=== PATIENT | female | born 1990 | race Caucasian/White ===

== ENCOUNTER 2020-02-05 00:49 | Outpatient (CLI) | payer MEDICARE, MEDICAID, SELFPAY ==
[2020-02-05 17:34] LABS: SARS-CoV-2 RNA PCR Negative
== END 2020-02-05 00:50 | disposition home or self-care (01) ==
LOC: ANHCOVIDDT 00:49
PROVIDERS: Visit Provider Obstetrics & Gynecology
DX: Z01.818 Encounter for other preprocedural examination (principal); Z11.59 Encounter for screening for other viral diseases
CPT/HCPCS: 87635; C9803; U0003

== ENCOUNTER 2020-02-07 01:51 | Day surgery (SDC) | payer MEDICARE, MEDICAID, SELFPAY ==
[2020-01-27 15:00] VITALS: BMI 21.0
[2020-02-07] VITALS (10 sets, daily range): BP systolic 93–128; BP diastolic 53–78; PULSE 53–80; RESP 12–18; TEMP 36.4–36.5; O2SAT 98–100
--- NOTE | 2020-02-07 07:51 | WPDANESEPPF ---
Anes - Initial Pre Proc Eval Procedure: Operation Date: 02/07/20 13:30 Proposed Procedures p Laparoscopic Bilateral Tubal Cautery, Fulgeration of Endometriosis - Estefani Maradiaga MD Date/Time: 02/07/20 07:51 Surgeon: Estefani Maradiaga MD Pre Op Diagnosis: sterilization Patient Data Age: 29 Gender: F Height: 1.57 m Weight: 52.16 kg Allergies Allergy/AdvReac Type Severity Reaction Status Date / Time No Known Allergies Allergy Mild Unverified 01/27/20 14:47 Home Medications Medication Instructions Recorded Confirmed Type clobazam [Onfi] 10 mg PO HS 01/27/20 01/27/20 History lacosamide [Vimpat] 50 mg PO QAM 01/27/20 01/27/20 History lacosamide [Vimpat] 100 mg PO QPM 01/27/20 01/27/20 History lamotrigine [Lamictal] 250 mg PO BID 01/27/20 01/27/20 History levetiracetam [Keppra] 750 mg PO BID 01/27/20 01/27/20 History topiramate 100 mg PO BID 01/27/20 01/27/20 History Patient hx anesthesia problems: none Family hx anesthesia problems: none [facility] Past Medical History Medical History (Updated 02/07/20 @ 07:51 by Ryne Underwood MD) Epilepsy Seizures LAST 2WEEKS AGO Anes - Eval Final PreProcedure Day of Procedure 02/07/20 07:51 Patient weight: normal Heart: regular rate and rhythm Lungs: clear to auscultation and normal air movement Airway: Mallampati scale class II Neurological: alert and oriented Last oral intake: >/= 8 hours ASA classification: III Emergent: no Anesthetic plan: proceed Anesthesia type and monitoring: general ETT Informed Consent: The patient's anesthetic plan and its attendant risks and benefits were discussed with the patient/family/POA. Questions were solicited and answers provided to the satisfaction of the patient/family/POA.
[2020-02-07] MEDS: LACTATED RINGERS 1,000 ML 30 ML IV CONT ×2 (11:30→16:08)
--- NOTE | 2020-02-07 12:16 | WPDHPUPDATE1 ---
History and Physical Update Update Date/Time: 02/07/20 12:16 History and Physical has been reviewed, including an updated exam of the patient. There are NO changes in the patient's condition. Risks, benefits, and alternatives have been discussed and questions answered. Patient agrees to proceed with procedure. Plan is for diagnostic laparoscopy with possible ovarian cystectomy possible fulguration of endometriosis and proceed wtih bilateral fulguration of fallopian tubes for sterilization
[2020-02-07 12:35] LABS: Hematocrit 38.5 % (37.0-47.0); Hemoglobin 12.8 g/dL (12.0-15.0); Mean Corpuscular HGB Conc 33.2 g/dl (32-36); Mean Corpuscular Hemoglobin 30.6 pg (26-34); Mean Corpuscular Volume 92.1 fl (80-100); Platelet Count Result 336 k/mm3 (150-375); Red Blood Count 4.18 M/mm3 (4.2-5.4); Red Cell Distribution Width 11.9 % (11.5-14.5); White Blood Count 6.9 K/mm3 (4.5-10.0)
[2020-02-07] MEDS: BUPIVACAINE/EPINEPHRINE 0.5% 10 ML VIAL INFILTRATE (14:39)
[2020-02-07] MEDS: KETOROLAC 30 MG/ML VIAL (*BKC) IV PUSH (15:50)
--- NOTE | 2020-02-07 16:00 | PM.PROC ---
Procedure Note - Detailed Date of procedure: 02/07/20 Pre-op diagnosis: sterilization Pelvic pain Post-op diagnosis: other (sterilization, pelvic pain, adhesions of tube and bowel to pelvic side wall. Enlarged ovaries with multiple ovarian cysts bilaterally, peritoneal lesions suggestive of endometriosis) Procedure performed: diagnostic laparoscopy with peritoneal biopsy, bilateral ovarian cystotomy and lysis of adhesions Description of procedure: The patient was taken to the operating room where general anesthesia was found to be adequate. She was then prepared and draped in the dorsal lithotomy position in [facility]. A hernandez cathter inserted. A speculum was inserted to visualize the cervix. A single toothed tenaculum placed on the anterior lip of the cervix. A uterine manipulator was placed within the cervix and affixed to the tenaculum. The specululm was removed. Attention was then turned to the umbilicus which was injected with 0.5% marcaine with epinephrine, incised with a scalpel and Veres needle used to peritoneal entry with entry pressure -1mmHg . She was insufflated to 15mmHg. She was then placed in Trendelenberg and the pelvis visualized. Multiple bilateral cysts noted simple in appearance. Both ovaries were adhesed to the pelvic side gamboa with filmy adhesions on the posterior side of the ovaries. The bowel and omentum were adhesed to the left ovary. The right fallopian tube was enlarged and several tubal cysts seen. Similarly on the left. So a suprapubic port was placed by injecting the skin with 0.5% marcaine with epinephrine, incising with a scalpel and 5mm port placed with direct visualization. Similarly a left lower quadrant port was placed 2 finger breadths medial to the ASIS. So bilateral salpingectomy was decided to be performed because of the appearance of the tubes. Starting on the right, I used scissors with catuery to free the adhesions on the posterior side of the ovary to allow it to be freely mobile. Then grabbed the fimbria of the tube and the adhesions of the fibria from the ovary. Then alternating kleppenger with scissors on cautery, I came through the tuboovarian ligament then cauterized across the fallopian tube about 0.5 cm from its base. The right tube was pulled through the 5mm port site. The ovarian cysts were all lanced and straw colored fluid flowed out. There were about 7 on this ovary. The serosa of the ovary over the incisions were cauterized with scissors. Then The attention was turned to the left which required careful dissection of the adhesions on the posterior wall from the bowel then the pelvic side wall with scissors to free up the ovary. The tube was then grasp and the tuboovarian ligament cauterized alternating the kleppenger with scissors. Once I was able to go to approximately 0.5cm from its base, the tube was transected and pulled through the 5mm port. Good hemostasis noted bilaterally. The cysts on the left ovary again were multiple and approxiately 7 of them were lanced with scissors on cautery to release the straw colored fluid within . No debri or gamboa noted. The pelvis was then suctioned and the bowels pulled out of the culdesac to examine the posterior wall. There was an area of light brown noted with appearance of endometriosis. This was biopsied using [place] and scissors. The peritoneal biopsy was placed in formalin and sent to pathology. There were no powder blue lesions. The rest of the posterior and anterior culdesacs were unremarkable. I then viewed the mid and upper abdomen and noted a slightly distended gallbladder without notable adhesions, and her appendix appeared slightly firm but not inflamed. Images taken. So I then viewed the pelvis to ensure no bleeding. The pneumoperitoneum was released as well as I visualized the pelvis and there was no bleeding. The ports were removed and closed with 4-0 monocryl. Sterile dressings placed. The tenaculum and uteri
[2020-02-07] MEDS: ONDANSETRON INJ 4 MG/2 ML VIAL IV PUSH (17:37)
[2020-02-07] MEDS: SCOPOLAMINE 1.5 MG PATCH TRANSDERM (17:56)
== END 2020-02-07 19:10 | disposition home or self-care (01) ==
PROVIDERS: PCP Family Medicine; Visit Provider Obstetrics & Gynecology
PROC: (CPT 58671; principal; 2020-02-07 13:30)
DX: Z30.2 Encounter for sterilization (principal); N83.202 Unspecified ovarian cyst, left side; N83.201 Unspecified ovarian cyst, right side; N83.8 Other noninflammatory disorders of ovary, fallopian tube and broad ligament; N73.6 Female pelvic peritoneal adhesions (postinfective); N94.89 Other specified conditions associated with female genital organs and menstrual cycle; K82.8 Other specified diseases of gallbladder; G40.909 Epilepsy, unspecified, not intractable, without status epilepticus
CPT/HCPCS: 58661; 58679; 49321; 36415; 85027; 88302; 88305; A9270; J0330; J1100; J1885; J2250; J2370; J2405; J2704; J2710; J3010; J7030; J7120